=== PATIENT | male | born 1950 | race Caucasian/White ===

== ENCOUNTER 2018-07-19 05:20 | Inpatient (IN) | payer OTHER ==
[2018-07-06 13:25] LABS: HEMATOCRIT 46.2 % (42.0-52.0); HEMOGLOBIN 15.3 gm/dL (14.0-18.0); MCH 32.1 pg (26.0-34.0); MCV 97.4 fL (80.0-100.0); RBC 4.75 mil/uL (4.50-6.00); RDW 13.6 % (10.5-14.5); WBC 5.7 thou/uL (4.0-11.0)
[2018-07-06 13:36] LABS: URINE BILIRUBIN NEGATIVE (Negative); URINE BLOOD NEGATIVE (Negative); URINE CLARITY CLEAR; URINE COLOR YELLOW; URINE GLUCOSE-RANDOM* NEGATIVE (Negative); URINE KETONES NEGATIVE (Negative); URINE LEUKOCYTES-REFLEX NEGATIVE (Negative); URINE NITRITE-REFLEX NEGATIVE (Negative); URINE PROTEIN (DIPSTICK) NEGATIVE (Negative); URINE SPECIFIC GRAVITY 1.025 (1.005-1.035); URINE UROBILINOGEN 0.2 E.U./dl (0.2-1.0)
[2018-07-06 13:37] LABS: ALBUMIN 3.9 g/dL (3.4-5.0); CALCIUM 9.2 mg/dL (8.5-10.1); CREATININE 1.2 mg/dL (0.7-1.3); POTASSIUM 4.9 mmol/L (3.5-5.1)
[2018-07-06 13:46] LABS: INR 1.1; PROTIME 11.4 Seconds (9.3-11.4)
[~2018-07-19] VITALS: Ht 180.3 cm; Wt 79.6 kg
[~2018-07-19 05:20] MED LIST: ALEVE220 MG PO; ASPIR 8181 MG PO; CALCIUM 600 +1 EAC1 PO; CARVEDILOL3.125 MG PO; CENTRUM SILVER1 EAC2 PO; COZAAR100 MG PO; GLUCOSAMINE CH1 EAC2 PO; LIPITOR40 MG PO; PLAVIX 75 MG TA75 M1 PO; PRAVACHOL40 MG PO; TESTONE CI200 MG/1 M IM; TYLENOL EXTRA500 MG PO; VITAMINC500 PO; ZETIA10 MG PO
[2018-07-19 07:30] VITALS: BP 135/84
[2018-07-19 11:27] VITALS: BP 148/80
--- NOTE | 2018-07-19 15:24 | NUR ---
PT TRANSFERED TO 427 IN BED FROM PACU, A&OX4 ALINA DRSG TO R KNEE C/D/I. IV INTACT IN L FA.DENIES ANY PAIN AT THIS TIME. PT ORIENTED TO ROOM, IV FLUIDS STARTED.
[2018-07-19 16:38] VITALS: BP 135/64
[2018-07-19 20:00] VITALS: BP 139/72
[2018-07-20 04:31] LABS: HEMATOCRIT 37.3 % (42.0-52.0); HEMOGLOBIN 12.6 gm/dL (14.0-18.0); MCHC 33.7 g/dL (28.0-37.0); RBC 3.81 mil/uL (4.50-6.00); RDW 13.6 % (10.5-14.5); WBC 14.2 thou/uL (4.0-11.0)
[2018-07-20 05:10] VITALS: BP 131/89
--- NOTE | 2018-07-20 05:34 | NUR ---
rested quietly tonight. denies the need for additiional pain reliever. continues on iv fluids, he is on his last bag. kathrin dressing intact and pump is funtioning. careplan reviewed. progressing toward discharge goals.
[2018-07-20 09:00] VITALS: BP 131/72
[2018-07-20 09:05] VITALS: BP 131/72
--- NOTE | 2018-07-20 11:24 | O ---
[facility] [place] [address] OPERATIVE REPORT Name: OLIVE LOPEZ Room #: 427-P [facility] IN M.R.#: [id number] Admission: 07/19/18 ������������������ Attend Phys: Boo Anne MD Discharge: ������������������ Date of : 50 Report #: [id number] THIS REPORT FOR: //name// CC: Harsha Anne DATE OF SERVICE: 07/19/2018 PREOPERATIVE DIAGNOSIS: Right knee osteoarthritis. POSTOPERATIVE DIAGNOSIS: Right knee osteoarthritis. PROCEDURE: Right total knee arthroplasty with Navio robotic assistance. SURGEON: Boo Anne M.D. GAS TURBINE MECHANIC: Elsi Joshi PA-C. INDICATION FOR GAS TURBINE MECHANIC: Throughout the case, extensive retraction and manipulation of the knee was required. This was afforded to me by my technical assistant. ANESTHESIA: LMA with an adductor canal block. IMPLANTS: Alegre and Nephew size 7 Legion cobalt-chrome posterior stabilized femur, a size 6 tibia, size 9 polyethylene and size 35 patella. TOURNIQUET TIME: 67 minutes. ESTIMATED BLOOD LOSS: 25 mL. COMPLICATIONS: None. SPECIMENS: None. CONDITION UPON LEAVING THE OPERATING ROOM: Stable. INDICATIONS FOR PROCEDURE: The patient is a 68-year-old gentleman with right knee osteoarthritis. He had failed conservative measures for this and after discussion with him, he elected for right total knee arthroplasty. DESCRIPTION OF PROCEDURE: Risks, benefits, alternatives and complications were discussed in detail with the patient including, but not limited to risk of anesthesia; risk of damage to nerves, arteries, blood vessels; risk for infection or bleeding; risk for continued knee pain and need for reoperation. Informed consent was obtained from the patient. [facility] [address] [place] [address] OPERATIVE REPORT Name: OLIVE LOPEZ Room #: 427-P [facility] IN M.R.#: [id number] Admission: 07/19/18 ������������������ Attend Phys: Boo Anne MD Discharge: ������������������ Date of : 50 Report #: [id number] Right knee was appropriately marked in the preoperative holding area. IV Ancef was given for preoperative antibiotics. Adductor canal block was placed by Anesthesia. He was brought to the operating room and placed in supine position on operating room table. LMA anesthesia was induced without complication. Tourniquet was placed on the right thigh. Right lower extremity was prepped and draped in the normal sterile fashion. Timeout was performed properly identifying the patient and procedure as well as the instrumentation. All in the operating room were in agreement. Right lower extremity was exsanguinated and tourniquet was inflated. Tourniquet time was 67 minutes. Standard midline approach to the knee was made with 10 blade through the skin. Dissection was taken down sharply to the fascia and deep flaps were developed medially and laterally. Fresh 10 blade was used to make a medial parapatellar arthrotomy and the knee was inspected. There was severe patellofemoral and lateral compartment osteoarthritis. ACL and PCL were removed sharply. Anterior horns of meniscus were removed sharply. Reference pins were placed in the femur and the tibia and the knee was digitally mapped using the Sinch robotic system. We sized a size 7 femur and a size 6 tibia. After acceptance of the intraoperative plan, the distal femoral cut was made with a Navio bur. The femoral cutting block was then pinned in place and the femoral cuts were made. Attention was turned to the tibia. Remainder of the menisci removed with Bovie cautery and the tibial resection guide was pinned in place using the Navio system for placement of the resection guide. Tibial resection was then made. After this, flexion and extension gaps were checked and found to have good balance in flexion and extension, both medially and laterally. Tibia was sized, found to be a size 6. A size 6 tibial trial was pinned and punched. A size 7 femoral trial was placed and the box cut was made. This was then trialed with a size 9 polyethylene. Knee was taken through range of motion and found to be stable and found to have good balance in flexion and extension, both medially and laterally. After this, 9 mm was taken off the posterior surface of the patella and a size 35 patellar trial button was placed. Knee was taken through range of motion and found to be stable and found to have good patellar tracking. Trial components were removed. Bone ends were thoroughly irrigated with normal saline. A final size 6 tibia, size 7 Legion cobalt-chrome posterior stabilized femur and a size 35 patella were cemented in place using standard cementation techniques. While the cement cured, a periarticular injection consisting of morphine, ropivacaine, epinephrine and Toradol were placed around the knee joint capsule. After the cement cured, the tourniquet was deflated. Hemostasis was obtained with Bovie cautery. Final size 9 polyethylene was placed. A gram of vancomycin was placed deep in the joint. Fascia was closed with 0 Vicryl, skin was closed with 2-0 Vicryl and 3-0 Monocryl. Dermabond and a ALINA dressing were [address] [address] OPERATIVE REPORT Name: OLIVE LOPEZ Room #: 427-P ADM IN M.R.#: [id number] Admission: 07/19/18 ������������������ Attend Phys: Boo Anne MD Discharge: ������������������ Date of : 50 Report #: [id number] applied. The patient tolerated this procedure well and went to the recovery room under the care of anesthesia postoperatively. ��������������������������������������������� <ELECTRONICALLY SIGNED> ���������������������������������������� By: Boo Anne MD ��������������������������������������������� 07/20/18 1124 0945 1007 Boo Anne MD /nt
[2018-07-20] MEDS ORDERED: NEURONTIN 300300 M1 PO (15:00)
--- NOTE | 2018-07-20 17:12 | NUR ---
PT WAS NEDING CRUTCHES FOR HOME. SCRIPT OBTAINED AND OFFERED OPTIONS. HE HAD NO PREFERENCE TO PROVIDER. NOTIFIED IAN FROM [employer] AND SHE ISSSUED CRUTCHES TO PT FOR DC HOME.
== END 2018-07-20 15:36 | disposition home or self-care (01) | DRG 470 ==
LOC: TBA 05:20 → 4E 05:20 → PRE 06:04 → 4E 11:16 → PRE 12:11 → 4E 07-20 15:36
PROVIDERS: ADMIT Orthopaedic Surgery
DX: M17.11 Unilateral primary osteoarthritis, right knee (principal)
CPT/HCPCS: 10183; 10783; 50010; 50101; 50415; 50954; 51130; 51225; 53000; 53078; 53364; 54118; 56527; 56528; 57095; 57103; 57109; 57110; 57113; 57127; 57180; 62110; 62900; 64042; 70005

== ENCOUNTER 2019-11-03 06:04 | Inpatient (IN) | payer OTHER ==
[2019-10-31 08:44] LABS: HEMATOCRIT 46.3 % (42.0-52.0); HEMOGLOBIN 15.8 gm/dL (14.0-18.0); MCH 33.5 pg (26.0-34.0); MCHC 34.2 g/dL (28.0-37.0); RBC 4.72 mil/uL (4.50-6.00); RDW 14.6 % (10.5-14.5); WBC 5.3 thou/uL (4.0-11.0)
--- NOTE | 2019-10-31 08:51 | EKG ---
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
[2019-10-31 08:56] LABS: ALBUMIN 3.6 g/dL (3.4-5.0); CALCIUM 9.4 mg/dL (8.5-10.1); CREATININE 1.3 mg/dL (0.7-1.3)
[2019-10-31 08:57] LABS: INR 1.1; PROTIME 11.3 Seconds (9.3-11.4)
[2019-10-31 09:02] LABS: URINE BILIRUBIN NEGATIVE (Negative); URINE BLOOD NEGATIVE (Negative); URINE CLARITY CLEAR; URINE COLOR YELLOW; URINE GLUCOSE-RANDOM* NEGATIVE (Negative); URINE KETONES NEGATIVE (Negative); URINE LEUKOCYTES-REFLEX NEGATIVE (Negative); URINE NITRITE-REFLEX NEGATIVE (Negative); URINE PROTEIN (DIPSTICK) NEGATIVE (Negative); URINE SPECIFIC GRAVITY 1.025 (1.005-1.035); URINE UROBILINOGEN 0.2 E.U./dl (0.2-1.0)
[~2019-11-03] VITALS: Ht 180.3 cm; Wt 77.1 kg
[~2019-11-03 06:04] MED LIST changes: +COREG6.25 MG PO; +LIPITOR80 MG PO; +MELATONIN10 M3 PO; +NEURONTIN 300300 M1 PO; +TRAMADOL 50 MG50 MG PO; +TURMERIC500 M2 PO; +VITAMIN C1000 MG PO
--- NOTE | 2019-11-03 16:00 | O ---
[facility] [place] [address] OPERATIVE REPORT Name: JESSICAOLIVE Room #: 439-P ADM IN M.R.#: [id number] Admission: 11/03/19 Attend Phys: Jose Guevara MD Discharge: Date of : 50 Report #: [id number] THIS REPORT FOR: cc: Harsha Corona MD,Jose Olivia MD, MD ~ CC: Jose Corona DATE OF SERVICE: 11/03/2019 PREOPERATIVE DIAGNOSIS: Multilevel lumbar spinal stenosis with radiculopathy. POSTOPERATIVE DIAGNOSIS: Multilevel lumbar spinal stenosis with radiculopathy. PROCEDURE: Decompressive laminectomy for spinal stenosis T12, L1, L2, L3, L4 and L5 levels. SURGEON: Jose Guevara MD INDICATIONS: This 69-year-old gentleman has a number of general orthopedic problems with degenerative arthritis in multiple joints and previous total joint replacement. He also has severe degenerative spondylosis throughout the lumbar spine causing disk compression and disk bulging and marked facet hypertrophy with spurring and a degenerative lumbar scoliosis. This results in moderate to moderately severe spinal stenosis at multiple levels. This extends from T12-L1 down to the L4-L5 level. This canal opens up better above and below these levels. We have discussed treatment options and elected to go ahead with surgical decompression. I have discussed at some length with the patient and his that he is certainly at some risk for perioperative problems given his age, multilevel disease, severe and chronic spinal stenosis with significant radiculopathy and also because he has been on anticoagulation in the past and recently suspended his Plavix, but may still be at some increased risk for postoperative bleeding problems. The patient's understands well. DESCRIPTION OF PROCEDURE: The patient was taken to the operating room where he was placed under general anesthesia. Prophylactic intravenous antibiotics were administered. He was turned to the prone position and the pressure points were all padded. The low back was meticulously prepped and draped. A longitudinal skin incision was made extending from T12 down to L5. This was carried through subcutaneous tissues and fascia. The paraspinal muscles were reflected off the spinous process, both toward the right and the left extending down to the lamina. Satisfactory hemostasis was maintained. There was some oozing probably related to his recent use of Plavix. The canal was initially opened in the mid lumbar region where exposure was best. The dissection was then extended both proximally and distally, removing the spinous process and lamina at each level. [facility] [address] [place] [address] OPERATIVE REPORT Name: OLIVE LOPEZ Room #: 439-P [facility] IN M.R.#: [id number] Admission: 11/03/19 Attend Phys: Jose Guevara MD Discharge: Date of : 50 Report #: [id number] The dissection was extended slightly out laterally to the edge of the facet joints, undercutting the lateral gutter slightly at each level trying to improve canal caliber. Intraoperative C-arm views were obtained with probe at the upper and lower aspect of the dissection. This confirmed that I was at the level of T12 upward and at the level of L5 at the lower end. I felt this extended throughout the areas of spinal stenosis. The area of decompression was carefully inspected and any further bony prominences or ligamentum hypertrophy was resected. This seemed to decompress multiple areas of spinal stenosis quite nicely. The canal was carefully probed particularly at the T12-L1 level, where there was some disk prominence noted on MRI. While the disk seemed somewhat prominent, it was not severe and I felt the bony decompression laminectomy was probably satisfactory for the safest method of decompression at that level. The more severe areas of spinal stenosis were the mid to lower lumbar region. There the disk was also found to be firm, but not particularly prominent and the bony laminectomy, decompression seemed to be satisfactory to relieve the rather severe stenosis at those levels. There did not seem to be any other areas of significant narrowing. Good hemostasis was confirmed. Gelfoam and thrombin were used to cover the exposed dura. One Hemovac drain was left deep in the wound overlying the laminectomy. The deep muscle layer was then reapproximated using multiple 0 Monocryl sutures. The muscle fascia was closed with both 0 Monocryl and #1 Vicryl interrupted sutures. A second Hemovac drain was placed in the subcutaneous tissues above the fascia exiting also through a separate stab incision. The subcutaneous tissues were then closed with 2-0 Monocryl and the skin was closed with skin mikey. A sterile dressing was applied. The patient was awakened and returned to recovery room in good condition. There he is able to demonstrate good movement and satisfactory strength and sensation in both lower extremities. <ELECTRONICALLY SIGNED> By: Jose Guevara MD 11/03/19 1600 [id number] 1035 Jose Guevara MD /nt
[2019-11-03 16:15] VITALS: BP 129/63
[2019-11-03 19:36] VITALS: BP 111/64
[2019-11-04 03:38] VITALS: BP 118/64
[2019-11-04 16:37] VITALS: BP 133/60
[2019-11-04 20:05] VITALS: BP 153/87
[2019-11-05 02:55] VITALS: BP 160/90
[2019-11-05 07:45] VITALS: BP 167/103
[2019-11-05 17:00] VITALS: BP 138/93
[2019-11-05 19:54] VITALS: BP 146/95
[2019-11-06 08:21] VITALS: BP 119/79
[2019-11-06 16:24] VITALS: BP 93/59
[2019-11-06 20:02] VITALS: BP 104/66
[2019-11-07 05:19] VITALS: BP 120/80
[2019-11-07 08:25] VITALS: BP 116/82
[2019-11-07 17:33] VITALS: BP 108/69
[2019-11-07 20:00] VITALS: BP 111/60
[2019-11-08 03:25] VITALS: BP 130/73
[2019-11-08] MEDS ORDERED: SENNA8.6 MG PO (10:04)
[2019-11-08] MEDS ORDERED: FLOMAX0.4 MG PO (10:04)
[2019-11-08 17:56] VITALS: BP 132/65
[2019-11-08 19:49] VITALS: BP 126/73
[2019-11-09 04:38] VITALS: BP 102/68
[2019-11-09 07:50] VITALS: BP 124/85
[2019-11-09] MEDS ORDERED: TRAMADOL 50 MG50 MG PO (09:16)
[2019-11-09 09:29] VITALS: BP 124/85
--- NOTE | 2019-11-13 07:55 | D ---
[facility] [place] [address] DISCHARGE SUMMARY Name: OLIVE LOPEZ Room #: 439-P [facility] IN M.R.#: [id number] Admission: 11/03/19 Attend Phys: Jose Guevara MD Discharge: 11/09/19 Date of : 50 Report #: [id number] THIS REPORT FOR: cc: Harsha Croona MD, Douglas James MD Clymer, David J. MD ~ THIS REPORT FOR: //name// CC: Jose Corona DATE OF SERVICE: 11/09/2019 FINAL DIAGNOSES: 1. Severe multilevel degenerative lumbar spondylosis and multilevel spinal stenosis with radiculopathy. 2. Postoperative ileus. 3. Postoperative urinary retention. 4. Chronic pain with pain management issues. 5. Atherosclerotic cardiovascular disease. 6. Hypertension. OPERATIONS AND PROCEDURES: Multilevel lumbar decompression for spinal stenosis. HISTORY OF PRESENT ILLNESS: This slender generally well appearing 69-year-old gentleman presents with severe chronic progressive bilateral lower extremity pain, numbness and weakness. His findings seem most consistent with severe spinal stenosis, which is confirmed on lumbar imaging, which show marked stenosis extending from T12 down to the L5 level. HOSPITAL COURSE: The patient was admitted and taken to the operating room on 11/03/2019. He underwent a multilevel lumbar decompression with laminectomy extending from T12 down to the L5 level. Postoperatively, his course was difficult given the difficulty with pain management and difficulty with various medications. He required both IV analgesics and oral analgesics in a gradually tapering regimen. He also had difficulty with postoperative ileus and postoperative urinary retention. Initially intermittent catheterization was tried, but he had persistent residual urine and so a Nelson catheter was placed and was left in place for several days. His ileus resolved slowly with medications, time and IV fluids. Initially, he was unable to participate in therapy because of pain and weakness, but gradually he was able to advance and did make slow, but steady progress with movement and ambulation. He noted that his bilateral leg pain and numbness were markedly improved following the surgery and his radiculopathy problem seemed to be clearly better. The back wound appears to be healing nicely without any evidence of bleeding and no evidence of infection. Hemovac drains were left in the wound for the first 48 hours, but [address] [address] DISCHARGE SUMMARY Name: OLIVE LOPEZ Room #: 439-P [facility] IN ..#: [id number] Admission: 11/03/19 Attend Phys: Jose Guevara MD Discharge: 11/09/19 Date of : 50 Report #: [id number] then removed and there have been no further problems. The primary issue has been controlled his pain and the associated ileus and urinary retention. All those problems have improved and now he is taking only rare tramadol and is able to avoid and having a small, but regular bowel movements. He is passing gas and has no bloating and his appetite has returned and he is beginning a more standard and regular diet. The patient and his feel he is safe and functional and independent and is ready for discharge today. DISCHARGE MEDICATIONS: Include Flomax 0.4 mg daily, Senokot 8.6 mg b.i.d., tramadol 50 mg q. 6 hours p.r.n. for pain, Plavix 75 mg daily, Cozaar 100 mg daily, multivitamin once daily, aspirin 81 mg daily, Lipitor 80 mg daily, Coreg 6.25 mg twice daily, melatonin 10 mg daily. He will continue a regular diet at home and we will monitor bladder function and may use intermittent self-catheterization if necessary, but at this point that does not seem to be a problem. I have asked him to call myself or his primary care physician if there are any other problems or issues, we will otherwise plan to see him back in the office in 1 week for followup and suture removal. <ELECTRONICALLY SIGNED> By: Jose Guevara MD 11/13/19 0755 0923 1037 Jose Guevara MD /sohan
== END 2019-11-09 10:43 | disposition home health service (06) | DRG 516 ==
LOC: 4S 06:04 → TBA 06:04 → PRE 08:13 → 4S 11:46 → PRE 11:52 → 4S 11-05 18:41
PROVIDERS: ADMIT Orthopaedic Surgery; ATTEND Orthopaedic Surgery
PROC: 01NB0ZZ Release Lumbar Nerve, Open Approach (ICD-10-PCS; principal; 2019-11-03)
PROC: 01N80ZZ Release Thoracic Nerve, Open Approach (ICD-10-PCS; principal; 2019-11-03)
DX: M48.05 Spinal stenosis, thoracolumbar region (principal); K56.7 Ileus, unspecified; R33.9 Retention of urine, unspecified; E78.5 Hyperlipidemia, unspecified; K21.9 Gastro-esophageal reflux disease without esophagitis; I25.10 Atherosclerotic heart disease of native coronary artery without angina pectoris; I10 Essential (primary) hypertension; G89.4 Chronic pain syndrome; Z96.642 Presence of left artificial hip joint; Z96.651 Presence of right artificial knee joint; I25.5 Ischemic cardiomyopathy; K59.00 Constipation, unspecified; Z20.828 Contact with and (suspected) exposure to other viral communicable diseases; Z95.5 Presence of coronary angioplasty implant and graft; Z79.899 Other long term (current) drug therapy; M47.26 Other spondylosis with radiculopathy, lumbar region
CPT/HCPCS: 10102; 50010; 50101; 50402; 50704; 50850; 51412; 56525; 62110; 62900; 70005